=== PATIENT | female | born 1985 | race Caucasian/White ===

== ENCOUNTER → 2018-10-19 | Outpatient (CLI) | payer OTHER ==
--- NOTE | 2018-10-19 18:22 | RADIOLOGY IMAGING REPORT ---
FACILITY: [facility] PATIENT NAME: Susy Balderas : 1985 MR: [id number] V: [id number] EXAM DATE: ORDERING PHYSICIAN: LINDA SPRING TECHNOLOGIST: Location: [facility] [place] Patient: Susy Balderas : 1985 Visit/Account:[id number] Date of Sevice: 10/19/2018 THYROID HISTORY: Thyroid megaly and goiter COMPARISON: None. FINDINGS: SIZE: Right lobe: 5.3 x 1.6 x 1.9 cm Left lobe: 5.4 x 1.8 x 2.6 cm Isthmus: 2 mm PARENCHYMA: Heterogeneous NODULES: Right lobe: * There are numerous cysts seen throughout the right lobe Left lobe: * There are numerous cysts in the mid to inferior aspect the left lobe. In the superior pole the le ft lobe there is a 3.8 x 1.9 x 2.7 cm solid relatively well-circumscribed mildly hypervascular hypoec hoic mass Isthmus: * None discrete. VASCULARITY: Within normal limits. ADDITIONAL FINDINGS: None. IMPRESSION: There are numerous bilateral thyroid cysts There is a solid 3.8 cm mass upper pole the left lobe the thyroid gland for which ultrasound-guided F NA biopsy is recommended REFERENCE: 2015 [place] [employer] Management Guidelines for Adult Patients with Thyroid Nodules and D ifferentiated Thyroid Cancer: The [place] [employer] Guidelines Task Force on Thyroid Nodul es and Differentiated Thyroid Cancer. SONOGRAPHIC PATTERNS: * Benign: Purely cystic nodules (no solid component); estimated risk of malignancy <1 percent; no bi opsy recommended. * Very Low Suspicion: Spongiform or partially cystic nodules without any of the sonographic features described in low, intermediate, or high suspicion patterns; estimated risk of malignancy <3 percent; consider FNA at > 2 cm (Observation without FNA is also a reasonable option). * Low Suspicion: Isoechoic or hyperechoic solid nodule, or partially cystic nodule with eccentric so lid areas, without microcalcification, irregular margin or ETE (extra-thyroidal extension), or taller than wide shape; estimated risk of malignancy 5-10 percent; recommend FNA at >1.5 cm. * Intermediate Suspicion: Hypoechoic solid nodule with smooth margins without microcalcifications, E TE (extra-thyroidal extension), or taller than wide shape; estimated risk of malignancy 10-20 percent ; recommend FNA at > 1 cm. * High Suspicion: Solid hypoechoic nodule or solid hypoechoic component of a partially cystic nodule with one or more of the following features: irregular margins (infiltrative, microlobulated), microc alcifications, taller than wide shape, rim calcifications with small extrusive soft tissue component, evidence of ETE (extra-thyroidal extension); estimated risk of malignancy >70-90 percent; recommend FNA at > 1 cm. NOTES: * Although a sonographically suspicious subcentimeter thyroid nodule without evidence of extrathyroi conor extension or sonographically suspicious lymph nodes may be observed with close sonographic follow -up rather than pursuing immediate FNA, patient age and preference may modify decision-making. A > 50% interval increase in nodule volume and/or development of new suspicious sonographic features are felt to be a valid reasons for potential re-aspiration of a nodule previously shown to have benig n FNA cytology. Report Dictated By: Rowan Yang MD at 10/19/2018 6:17 PM Report E-Signed By: Rowan Yang MD at 10/19/2018 6:19 PM WSN:[email or web address]
== END ==
LOC: US 15:48
PROVIDERS: ATTEND Nurse Practitioner Family
DX: E04.1 Nontoxic single thyroid nodule (principal)
CPT/HCPCS: 76536

== ENCOUNTER → 2018-11-20 | Day surgery (SDC) | payer OTHER ==
[~2018-11-20] VITALS: Ht 162.6 cm; Wt 100.7 kg
[~2018-11-20] MED LIST: ETON68IM SQ; LIDOCAINE/SOD BICARB 8.4% SYR ID ONE; NORMOSOL R SOLN(*) 1000 ML BAG 1,000 ML IV PRN; PANT40TA65 PO; PROPOFOL EMUL(*) 10MG/ML 20 ML 20 ML ONE
[2018-11-20 10:01] VITALS: BP 120/81
[2018-11-20 11:28] VITALS: BP 112/75
--- NOTE | 2018-11-20 11:37 | Short(Outpt) Discharge Summary ---
Discharge Summary Reason for Hosp/Final Diag: (1) Dysphagia Hospital Course & Plan: 33 yo f with dysphagia presented for egd. she tolerated the procedure well and there were no complications. path pending. patient will be discharged when criteria met. Departure Discharge to: Home Discharge Instructions Home Meds Active Scripts Pantoprazole Sodium (PANTOPRAZOLE SODIUM) 40 Mg Tablet.dr, 40 MG PO QDAY, #30 TAB.SR 1 Refill Prov:JUSTINO LAMB 11/20/18 Reported Medications Etonogestrel (NEXPLANON) Unknown Strength Implant, SQ DIRECTED for control, IMPLANT 11/19/18 Diet: Regular Activity: As Tolerated Special Instructions: we will call you in 7-10 days with biopsy results. JUSTINO LAMB Nov 20, 2018 11:37
[2018-11-20 11:40] VITALS: BP 118/80
[2018-11-20 11:50] VITALS: BP 116/82
[2018-11-20 12:08] VITALS: BP 120/86
[2018-11-20 12:09] VITALS: BP 114/87
== END ==
LOC: OR 02:14
PROVIDERS: ATTEND Surgery
DX: K29.70 Gastritis, unspecified, without bleeding (principal)
CPT/HCPCS: 43239; 43249; 81025; 87077; 88305; 88313; 88344; J2704

== ENCOUNTER → 2019-03-03 | Outpatient (CLI) | payer OTHER ==
[~2019-03-03] MED LIST changes: -LIDOCAINE/SOD BICARB 8.4% SYR ID ONE; -NORMOSOL R SOLN(*) 1000 ML BAG 1,000 ML IV PRN; -PROPOFOL EMUL(*) 10MG/ML 20 ML 20 ML ONE
== END ==
LOC: LAB 09:14
PROVIDERS: ATTEND Otolaryngology
DX: Z91.018 Allergy to other foods (principal); E04.1 Nontoxic single thyroid nodule
CPT/HCPCS: 36415; 84439; 84443; 84481; 86003

== ENCOUNTER → 2019-06-03 | Outpatient (CLI) | payer OTHER | LOC: LAB 16:48 | PROVIDERS: ATTEND Nurse Practitioner Family | DX: E04.1 Nontoxic single thyroid nodule (principal) | CPT/HCPCS: 36415; 83036; 86376; 86800 ==